=== PATIENT | female | born 1945 | race Caucasian/White ===

== ENCOUNTER 2019-11-27 11:55 | Emergency (ER) | payer MEDICARE ==
[~2019-11-27] VITALS: Ht 167.6 cm; Wt 58.0 kg
--- NOTE | 2019-11-27 12:11 | NUR ---
PT BIB EMS FOR A DISLODGED DELMA-CATH. PT LIVES IN [place]. SHE FELT A SHARP PAIN ON HER RIGHT CHEST WALL BELOW HER BREAST. SHE WENT TO ER AND X RAY SHOWED THE DISLODGED CATH IN HER [facility]. PT STATES SHE IS CURRENTLY PAIN FREE BUT SOMETIMES CAN FEEL A SHARP PAIN IF SHE MOVES AROUND. PT IS RESTING IN [facility]. EKG COMPLETE. CONNECTED TO ALL MONITORING EQUIPMENT. NAD. BLANKET PROVIDED.
--- NOTE | 2019-11-27 13:06 | NUR ---
PCXR BEING DONE, PT TO GO TO IR FOR TIP PLACEMENT VERIFICATION. VSS, PT IN NAD. WILL CONTINUE TO MONITOR. CALL LIGHT IN REACH, AIDET PROVIDED.
--- NOTE | 2019-11-27 13:27 | NUR ---
UPDATED PT ON PLAN. PT BUNNY ALSO UPDATED PER REQUEST OF PT. HE CAN BE REACHED AT [phone]
[2019-11-27] MEDS ORDERED: LIDOCAINE 1%, 20ML ONE (13:48)
--- NOTE | 2019-11-27 14:02 | NUR ---
no change in assessment, awaiting IR procedure. pt to remain npo. vss.
--- NOTE | 2019-11-27 14:10 | NUR ---
IR updated with status. no change in assessment.
[2019-11-27] MEDS ORDERED: NALOXONE 1 MG/ML, 2ML ONE (15:31)
[2019-11-27] MEDS ORDERED: FLUMAZENIL 0.1 MG/1 ML, 5ML ONE (15:31)
[2019-11-27] MEDS ORDERED: FENTANYL PF 100 MCG/2ML ONE (15:31)
[2019-11-27] MEDS ORDERED: MIDAZOLAM 1 MG/ML, 5ML ONE (15:31)
--- NOTE | 2019-11-27 17:27 | NUR ---
BACK FROM IR, PORT REMOVED. VENOUS R FEMORAL ACCESS, PT TO BE FLAT FOR 2HRS. VSS, RE-EDUCATED PT RE POC. UPDATED FAMILY. VSS. WILL CONTINUE TO MONITOR, CALL HINES IN REACH.
--- NOTE | 2019-11-27 17:32 | NUR ---
ABX STARTED, PT STILL C/O PAIN. STATES IS 06/23. NO N/V. NPO INSTRUCT. WAITING FOR ADMIT/SURGEON
--- NOTE | 2019-11-27 17:57 | NUR ---
RIGHT FEMORAL ACCESS SITE, SOFT NO HEMATOMA OR BLEEDING. CHEST CDI. VSS.
--- NOTE | 2019-11-27 18:10 | NUR ---
VSS, NO HEMATOMA TO RIGHT FEMORAL ACCESS SITE. REMAINS SUPINE. WILL CONTINUE TO MONITOR.
[2019-11-27 18:11] VITALS: BP 122/68
--- NOTE | 2019-11-27 18:54 | NUR ---
ride on way.
--- NOTE | 2019-11-27 18:57 | NUR ---
no s/s hematoma, bleeding. RIDE ON WAY.
== END 2019-11-27 20:17 ==
LOC: ED 17:33
DX: R07.89 Other chest pain (principal); Z45.2 Encounter for adjustment and management of vascular access device; Z85.3 Personal history of malignant neoplasm of breast
CPT/HCPCS: 36590; 37191; 71045; 77001; 93005; 99156; 99157; 99285; C1751; C1773; C1894; J2250; J3010; J3490; J2310